=== PATIENT | male | born 1995 | race Caucasian/White ===

== ENCOUNTER 2019-08-28 19:37 | Emergency (ER) | payer SELFPAY ==
[~2019-08-28] VITALS: Ht 170.2 cm; Wt 76.3 kg
[2019-08-28 19:44] VITALS: BP 130/78
--- NOTE | 2019-08-28 19:50 | NUR ---
AMBULATES TO BED 02 WITH STEADY UPRIGHT GAIT. URINE SAMPLE COLLECTED.
--- NOTE | 2019-08-28 19:55 | NUR ---
23/M C/O 02/22 INTERMITTENT MID ABD PAIN X STARTING TODAY WITH N/V. 2X EPISODIES OF NONBLOODY EMESIS. STATES SUBJECTIVE FEVER. LBM TODAY, NORMAL CONSISTENCY. NORMOACTIVE BS, MID ABD TTP. PMH- DENIES RX-- DENIES Addendum: 08/28/19 at 2002 by AUDREY PT REPORTS ABD PAIN X 2 DAYS NOT 1 DAY.
--- NOTE | 2019-08-28 20:01 | NUR ---
Dr. Christie examining patient.
[2019-08-28] MEDS: KETOROLAC 60 MG/2 ML VIAL IM ONE (20:14)
[2019-08-28] MEDS: ONDANSETRON 4 MG ODT PO ONE (20:15)
[2019-08-28 20:25] VITALS: BP 130/78
--- NOTE | 2019-08-28 20:25 | NUR ---
Patient discharged with v/s stable. Written and verbal after care instructions given and explained. Patient alert, oriented and verbalized understanding of instructions. Ambulatory with steady gait. All questions addressed prior to discharge. ID band removed. Patient advised to follow up with PMD. Rx of MOTRIN, ZOFRAN, NORCO given. Patient educated on indication of medication including possible reaction and side effects. Opportunity to ask questions provided and answered.
== END 2019-08-28 20:25 | disposition home or self-care (01) ==
LOC: MED 19:37
DX: R10.13 Epigastric pain (principal); R11.2 Nausea with vomiting, unspecified; R50.9 Fever, unspecified
CPT/HCPCS: 81002; 96372; 99283; J1885; Q0162